=== PATIENT | female | born 1990 | race Caucasian/White ===

== ENCOUNTER 2017-01-24 21:37 | Emergency (ER) | payer OTHER ==
[2017-01-24 21:50] VITALS: RESP 16; TEMP 97.7
[2017-01-24] MEDS ORDERED: ONDANSETRON 4 MG/2 ML VIAL IVP ONE (21:59)
[2017-01-24] MEDS ORDERED: MECLIZINE HCL 25 MG TAB PO ONE (21:59)
[2017-01-24] MEDS ORDERED: NS 1,000 ML IV ONE (21:59)
[2017-01-24] MEDS ORDERED: IBUPROFEN 600 MG TAB PO ONE (21:59)
--- NOTE | 2017-01-24 22:03 | EDPHY ---
H & P Stated Complaint: POSSIBLE CONCUSSION Time Seen by Provider: 01/24/17 21:39 HPI/ROS: CHIEF COMPLAINT: Headache, dizziness, possible concussion HISTORY OF PRESENT ILLNESS: 26-year-old female who reports she has a history of 7 concussions previously, and [address] scans, presents reporting that 4 days ago while at work she was struck in the head with multiple heavy boxes when they were falling off of the cart. No loss of consciousness. Patient reports some tenderness to her scalp and headache rest of that day. She did relatively well the next 2 days. This morning when she woke she had an episode of vomiting which she reports is not unusual for her in the mornings. 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 Patient denies any fevers or chills. She denies any chest pain, shortness of breath, palpitations, diarrhea, urinary complaints. REVIEW OF SYSTEMS: Aside from elements discussed in the HPI, a comprehensive 10-point review of systems was reviewed and is negative. PAST MEDICAL HISTORY: Concussion x7. SOCIAL HISTORY: Smoker, uses marijuana. No alcohol. VITAL SIGNS Reviewed by me. GENERAL: Well-developed, well-nourished, laughing, joking, looks well. HEENT: Atraumatic. No ecchymosis, contusions, or scalp hematomas noted. No lacerations. Eyes: PERRL, EOMI, slight nystagmus on lateral gaze nystagmus. No icterus. No injection. Mouth: moist mucous membranes. No erythema or lesions. Neck: No meningitis. Nontender to palpation. No adenopathy. LUNGS: Clear to auscultation bilaterally, no wheezes, rhonchi or rales. CARDIAC: Regular rate and rhythm, no rubs, murmurs or gallops. ABDOMEN: Soft, nontender, nondistended, bowel sounds normal. BACK: No CVA tenderness. EXTREMITIES: No trauma. No edema. Range of motion is normal throughout. NEURO: Alert and oriented, cranial nerves II through XII are intact. Motor strength 5 over 5 in all major muscle groups. Sensation intact to light touch. Normal gait. SKIN: Warm and dry, no rash. PSYCHIATRIC: Normal mentation, no agitation. Able to count backwards from 100 by sevens, able to spell world backwards. - Personal History LMP (Females 10-55): Unknown Current Tetanus Diphtheria and Acellular Pertussis (TDAP): Yes Tetanus Vaccine Date: LESS THAN 10 YEARS - Medical/Surgical History Hx Asthma: No Hx Chronic Respiratory Disease: No Hx Diabetes: No Hx Cardiac Disease: No Hx Renal Disease: No Hx Cirrhosis: No Hx Alcoholism: No Hx HIV/AIDS: No Hx Splenectomy or Spleen Trauma: No Other PMH: "7 CONCUSSIONS FROM CHEERLEADING", BACK PROBLEMS FROM CHEERLEADING. - Social History Smoking Status: Never smoked Constitutional: Initial Vital Signs Temperature (C) 36.5 C 01/24/17 21:48 Heart Rate 74 01/24/17 21:48 Respiratory Rate 16 01/24/17 21:48 Blood Pressure 132/79 H 01/24/17 21:48 O2 Sat (%) 100 01/24/17 21:48 O2 Delivery Mode Room Air Allergies/Adverse Reactions: wheat Allergy (Verified 01/24/17 21:48) Home Medications: Medication Instructions Recorded Meclizine HCl [Meclizine HCl 25 mg 12.5 - 25 mg PO BID PRN #20 tab 01/24/17 (RX,OTC)] Medical Decision Making ED Course/Re-evaluation: Discussion held with the patient regarding head injuries, concussions, post concussive symptoms. Given the fact that the patient had no loss conscious at the time of the initial event, has had only mild headache, and mild dizziness today with no focal neurologic deficits, I believe it is safe to proceed with no additional CT scanning of the head. Patient did have an episode of vomiting this morning but tells me that this is not an unusual event for her. She looks quite well. She is not taking any medications for her headache. Patient received a L of normal saline as well as meclizine for dizziness, ibuprofen for headache, and Zofran for nausea. Patient reports the dizziness is significantly improved with the meclizine. She looks well. Patient will be referred to follow up with the neurologist specializing concussive symptoms. She is given referral to Dr. Jing Guthrie. Differential Diagnosis: Differential diagnoses for the patient's symptom complex was considered including but not limited to concussion, contusion, intracranial hemorrhage. - Data Points Medications Given: Discontinued Medications Sodium Chloride (Ns) 1,000 mls @ 0 mls/hr IV ONCE ONE; Wide Open PRN Reason: Protocol Stop: 01/24/17 22:00 Last Admin: 01/24/17 22:13 Dose: 1,000 mls Ibuprofen (Motrin) 600 mg PO EDNOW ONE Stop: 01/24/17 22:00 Last Admin: 01/24/17 22:12 Dose: 600 mg Meclizine HCl (Meclizine Hcl) 25 mg PO EDNOW ONE Stop: 01/24/17 22:00 Last Admin: 01/24/17 22:13 Dose: 25 mg Ondansetron HCl (Zofran) 4 mg IVP EDNOW ONE Stop: 01/24/17 22:00 Last Admin: 01/24/17 22:14 Dose: 4 mg Departure - Departure Disposition: Home, Routine, Self-Care Clinical Impression: Dizziness, Post concussive syndrome Concussion Qualifiers: Encounter type: initial encounter Loss of consciousness presence/duration: without LOC Qualified Code(s): S06.0X0A - Concussion without loss of consciousness, initial encounter Condition: Good Instructions: Post Concussion Syndrome (ED) Additional Instructions: Please use Tylenol and ibuprofen as needed for any ongoing headache. I recommend cognitive rest for the next several days into your symptoms are improving. This means no prolonged screen time (watching TV, surfing the web on the phone, surfing the web on the computer, playing video games). Please take meclizine as needed for any ongoing dizziness symptoms. Dose is 12.5-25 mg 2 times a day. It is available [id number]. You have also been given a prescription. Referrals: Patient,NotPresent [Unknown] - As per Instructions Jing Guthrie MD [Medical Doctor] - As per Instructions Prescriptions: Meclizine HCl [Meclizine HCl 25 mg (RX,OTC)] 12.5 - 25 mg PO BID PRN #20 tab PRN Reason: Dizziness
[2017-01-24 23:08] VITALS: BP 123/67; PULSE 72; O2SAT 99
== END 2017-01-24 23:12 | disposition home or self-care (01) ==
DX: S06.0X0A Concussion without loss of consciousness, initial encounter (principal); R42 Dizziness and giddiness; F17.200 Nicotine dependence, unspecified, uncomplicated; E86.9 Volume depletion, unspecified; W20.8XXA Other cause of strike by thrown, projected or falling object, initial encounter; Y99.0 Civilian activity done for income or pay; Y93.89 Activity, other specified
CPT/HCPCS: 96374; J2405